=== PATIENT | female | born 1975 | race Hispanic/Latino ===

== ENCOUNTER 2017-09-14 08:53 | Emergency (ER) | payer MEDICAID, OTHER ==
[2017-09-14 08:53] VITALS: BMI 25.0
[2017-09-14 08:57] VITALS: BP 132/88; TEMP 97.8; O2SAT 99
[2017-09-14 09:42] VITALS: PULSE 66
--- NOTE | 2017-09-14 10:05 | C.PDOC ---
History Of Present Illness 42 y/o female presents to the ER complaining of productive cough which has been present for the past 1 week. Patient is also complaining of pleuritic chest pain. Denies having SOB, fever, and abdominal pain. Time Seen by Provider: 09/14/17 09:06 Chief Complaint (Nursing): Chest Pain History Per: Patient History/Exam Limitations: no limitations Onset/Duration Of Symptoms: Days Current Symptoms Are (Timing): Still Present Severity: Moderate Past Medical History Reviewed: Historical Data, Nursing Documentation, Vital Signs Vital Signs: Last Vital Signs Temp 97.8 F 09/14/17 08:55 Pulse 66 09/14/17 09:38 Resp 18 09/14/17 10:10 BP 132/88 09/14/17 08:55 Pulse Ox 99 09/14/17 17:49 - Medical History PMH: Anxiety, Bipolar Disorder, CAD (MVP), Depression Denies: Diabetes, Hepatitis, HIV, HTN, Chronic Kidney Disease, Seizures, Sexually Transmitted Disease Surgical History: No Surg Hx - [facility] Procedures IMMOBILIZ/WOUND ATTN NEC (02/25/13) INJECT/INFUSE ELECTROLYT (09/07/13) INJECT/INFUSE NEC (09/07/13) PSYCHIAT DRUG THERAP NEC (09/21/13) Family History: States: No Known Family Hx - Social History Hx Tobacco Use: No Hx Alcohol Use: No Hx Substance Use: Yes - Immunization History Hx Tetanus Toxoid Vaccination: No Hx Influenza Vaccination: No Hx Pneumococcal Vaccination: No Review Of Systems Except As Marked, All Systems Reviewed And Found Negative. Constitutional: Negative for: Fever, Chills Cardiovascular: Positive for: Chest Pain Respiratory: Positive for: Cough. Negative for: Shortness of Breath Gastrointestinal: Negative for: Abdominal Pain Physical Exam - Physical Exam Appears: Non-toxic, Other (speaking in full sentences, coughing occasionally) Skin: Normal Color, Warm, Dry Head: Atraumatic, Normacephalic Eye(s): bilateral: Normal Inspection Ear(s): Bilateral: Normal Nose: Normal Oral Mucosa: Moist Throat: Normal, No Erythema, No Exudate Neck: Supple Chest: Symmetrical Cardiovascular: Rhythm Regular Respiratory: Normal Breath Sounds, No Rales, No Rhonchi, No Wheezing Extremity: Normal ROM, Other ((-) leg edema) Neurological/Psych: Oriented x3, Normal Speech ED Course And Treatment ECG: Interpreted By Me, Viewed By Me ECG Rhythm: Sinus Rhythm Interpretation Of ECG: NSR with normal axises and no acute ST/ T -wave changes Rate From EC O2 Sat by Pulse Oximetry: 99 (RA) Pulse Ox Interpretation: Normal - Radiology CXR: Interpreted by Me, Viewed By Me CXR Interpretation: Yes: No Acute Disease Progress Note: EKG and CXR ordered.Patient treated with Tessalon Perles PO. Patient has been discharged with prescription for Tessalon Perles and Naproxen. Patient has been instructed to follow up with PMD/ clinic in 1-2 days and return to ER if symptoms worsen. Disposition Counseled Patient/Family Regarding: Diagnosis, Need For Followup, Rx Given - Disposition Referrals: [facility] at [facility] [Outside] Disposition: HOME/ ROUTINE Disposition Time: 10:05 Condition: STABLE Additional Instructions: FOLLOW UP WITH YOUR DOCTOR/CLINIC IN 1-2 DAYS USE MEDICATIONS DIRECTED RETURN TO ER IF SYMPTOMS WORSEN Prescriptions: Benzonatate [Tessalon Perles] 100 mg PO BID PRN #15 sgl PRN Reason: Cough Naproxen 375 mg PO BID PRN #20 tablet PRN Reason: pain Instructions: Viral Upper Respiratory Infection, Adult (DC) Forms: [employer] (Tajik) Print Language: LATVIAN - POA Present On Arrival: None - Clinical Impression Clinical Impression: Viral upper respiratory infection, Pleuritic pain - Scribe Statement The provider has reviewed the documentation as recorded by the Calebibfarshad Tinsley Provider Attestation: All medical record entries made by the Calebibe were at my direction and personally dictated by me. I have reviewed the chart and agree that the record accurately reflects my personal performance of the history, physical exam, medical decision making, and the department course for this patient. I have also personally directed, reviewed, and agree with the discharge instructions and disposition.
[2017-09-14 10:11] VITALS: RESP 18
--- NOTE | 2017-09-15 14:05 | CARD ---
APPROVED REPORT EKG Measurement Heart [id number] <Conclusion> Normal sinus rhythm Normal ECG
== END 2017-09-14 10:10 | disposition home or self-care (01) ==
LOC: C.ER 08:53
DX: J06.9 Acute upper respiratory infection, unspecified (principal); R07.81 Pleurodynia; I25.10 Atherosclerotic heart disease of native coronary artery without angina pectoris

== ENCOUNTER 2017-10-19 17:22 | Emergency (ER) | payer MEDICAID ==
[2017-10-19 17:29] VITALS: BMI 26.6
[2017-10-19] MEDS ORDERED: Albuterol 0.083% Inhal Sol (2.5 mg/3 mL) UD IH STA (18:43)
--- NOTE | 2017-10-19 19:01 | C.PDOC ---
History Of Present Illness 42 y/o female presents to ED with c/o intermittent cough, congestion and post nasal drip since 04/2017. Patient was seen at ED 1 month ago for similar symptoms and was discharge on medication. Patient reports left anterior chest wall pain, cough and trouble with expiratory breathing. Patient denies fever, chills, nausea, vomiting or any other complaints at this time. Time Seen by Provider: 10/19/17 18:30 Chief Complaint (Nursing): Chest Pain History Per: Patient History/Exam Limitations: no limitations Onset/Duration Of Symptoms: Days Current Symptoms Are (Timing): Still Present Past Medical History Reviewed: Historical Data, Nursing Documentation, Vital Signs Vital Signs: Last Vital Signs Temp 98.8 F 10/19/17 17:28 Pulse 74 10/19/17 18:26 Resp 19 10/19/17 18:26 BP 122/67 10/19/17 18:26 Pulse Ox 98 10/19/17 19:02 - Medical History PMH: Anxiety, Bipolar Disorder, CAD (MVP), Depression Surgical History: No Surg Hx - [facility] Procedures IMMOBILIZ/WOUND ATTN NEC (02/25/13) INJECT/INFUSE ELECTROLYT (09/07/13) INJECT/INFUSE NEC (09/07/13) PSYCHIAT DRUG THERAP NEC (09/21/13) Family History: States: No Known Family Hx - Social History Hx Tobacco Use: No Hx Alcohol Use: No Hx Substance Use: No - Immunization History Hx Tetanus Toxoid Vaccination: No Hx Influenza Vaccination: No Hx Pneumococcal Vaccination: No Review Of Systems Constitutional: Negative for: Fever, Chills Cardiovascular: Positive for: Chest Pain Respiratory: Positive for: Cough Gastrointestinal: Negative for: Nausea, Vomiting Skin: Negative for: Rash Physical Exam - Physical Exam Appears: Non-toxic, No Acute Distress Skin: Warm, Dry, No Rash Head: Atraumatic, Normacephalic Eye(s): bilateral: Normal Inspection Oral Mucosa: Moist Neck: Normal ROM, Supple Chest: Tenderness (left sternal border) Cardiovascular: Rhythm Regular Respiratory: No Rales, No Rhonchi, Wheezing (expiratory ) Gastrointestinal/Abdominal: Soft, No Tenderness, No Guarding, No Rebound Extremity: Normal ROM, No Pedal Edema, Capillary Refill (<2 seconds) Neurological/Psych: Oriented x3, Normal Speech, Normal Cognition ED Course And Treatment ECG: Interpreted By Me ECG Rhythm: Sinus Rhythm (with short VA interval) O2 Sat by Pulse Oximetry: 98 (RA) Pulse Ox Interpretation: Normal - Radiology CXR: Interpreted by Me CXR Interpretation: Yes: No Acute Disease Reevaluation Time: 19:35 Reassessment Condition: Improved (after albuterol treatments. No further wheezing.) Disposition Counseled Patient/Family Regarding: Studies Performed, Diagnosis, Need For Followup, Rx Given - Disposition Referrals: [facility] [Outside] Disposition: HOME/ ROUTINE Disposition Time: 19:36 Condition: IMPROVED Prescriptions: Albuterol HFA [Ventolin HFA 90 mcg/actuation (8 g)] 1 puff IH QID PRN #1 inhaler PRN Reason: Wheezing Instructions: Costochondritis, Wheezing Forms: [facility] (Ivorian) - Clinical Impression Clinical Impression: Left-sided chest wall pain, Bronchospasm - Scribe Statement The provider has reviewed the documentation as recorded by the Scribfarshad Sanchez All medical record entries made by the Scribe were at my direction and personally dictated by me. I have reviewed the chart and agree that the record accurately reflects my personal performance of the history, physical exam, medical decision making, and the department course for this patient. I have also personally directed, reviewed, and agree with the discharge instructions and disposition.
[2017-10-19] MEDS ORDERED: Albuterol 0.083% Inhal Sol (2.5 mg/3 mL) UD ONE ×2 (19:11→19:36)
[2017-10-19 20:18] VITALS: BP 124/78; PULSE 78; RESP 24; TEMP 98.3; O2SAT 100
--- NOTE | 2017-10-20 11:28 | RAD ---
HISTORY: COMPARISON: 09/14/2017. TECHNIQUE: Chest PA and lateral FINDINGS: LINES AND TUBES: None. LUNG AND PLEURA: The lungs are well inflated and clear. No pleural effusion or pneumothorax. HEART AND MEDIASTINUM: The heart is not enlarged. The hilar and mediastinal contours are within normal limits. SKELETAL STRUCTURES: The bony structures are within normal limits for the patient's age. VISUALIZED UPPER ABDOMEN: Normal. OTHER FINDINGS: None. IMPRESSION: No active pulmonary disease.
== END 2017-10-19 20:00 | disposition home or self-care (01) ==
LOC: C.ER 17:22
DX: J98.01 Acute bronchospasm (principal); R07.89 Other chest pain; I25.10 Atherosclerotic heart disease of native coronary artery without angina pectoris; I34.1 Nonrheumatic mitral (valve) prolapse